=== PATIENT | female | born 1995 | race Two or more races ===

== ENCOUNTER 2021-04-25 10:17 | Emergency (ER) | payer SELFPAY ==
[~2021-04-25] VITALS: Ht 162.6 cm; Wt 68.0 kg
[2021-04-25 10:19] VITALS: BP 127/79
== END 2021-04-25 11:20 | disposition home or self-care (01) ==
LOC: ER 10:17
DX: S61.216A Laceration without foreign body of right little finger without damage to nail, initial encounter (principal); W25.XXXA Contact with sharp glass, initial encounter; Y93.89 Activity, other specified; Y92.89 Other specified places as the place of occurrence of the external cause; Y99.8 Other external cause status
CPT/HCPCS: 12002

== ENCOUNTER 2021-05-02 09:39 | Emergency (ER) | payer SELFPAY ==
[~2021-05-02] VITALS: Ht 162.6 cm; Wt 68.0 kg
[2021-05-02 10:39] VITALS: BP 150/99
== END 2021-05-02 11:06 | disposition home or self-care (01) ==
LOC: ER 09:39
DX: S61.216D Laceration without foreign body of right little finger without damage to nail, subsequent encounter (principal); X58.XXXD Exposure to other specified factors, subsequent encounter